=== PATIENT | female | born 1975 | race Caucasian/White ===

== ENCOUNTER 2019-04-21 01:29 | Outpatient (CLI) | payer BC, SELFPAY ==
--- NOTE | 2019-04-21 06:56 | DI.US_ITS ---
EXAM: US ABDOMEN CLINICAL HISTORY: abd pain TECHNIQUE: Ultrasound performed using standard protocol. COMPARISON: No exams were available for comparison FINDINGS: The aorta is normal in diameter. The liver is normal in size and echogenicity. No focal liver lesi ons or biliary dilatation is seen. The no gallstones or gallbladder wall thickening is present. The patient was not tender while scanning over the gallbladder. The kidneys, spleen and pancreas are un remarkable. There is no ascites. IMPRESSION: Negative abdomen ultrasound
[2019-04-21 07:45] LABS: Absolute Basophil Count 0.01 k/cumm (0.0-0.2); Absolute Eosinophil Count 0.35 k/cumm (0.0-0.7); Absolute Lymphocyte Count 2.03 k/cumm (1.2-3.4); Absolute Monocyte Count 0.29 k/cumm (0.11-0.7); Basophils % 0.2; Eosinophils % 7.8; HCT 39.4 % (36.0-46.0); HGB 13.4 g/dL (12.0-15.5); Lymphocytes % 45.3; Mean Corpuscular Hemoglobin 30.9 pg (27.0-33.0); Mean Platelet Volume 9.5 fL (8.0-11.0); Monocytes % 6.5; Neutrophils % 40.2; Platelet Count 219 x1000/uL (130-400); RBC 4.33 m/cumm (4.00-5.20); RBC Distribution Width 12.5 % (11.7-14.6); White Blood Cell Count 4.48 k/cumm (4.4-10.8)
[2019-04-21 08:45] LABS: ALT 32 U/L (14-59); AST 28 U/L (15-37); Alkaline Phosphatase 85 U/L (46-116); Anion Gap 8.6 mmol/L (3-11); BUN 13 mg/dL (7-18); Bilirubin, Total 0.5 mg/dL (0.2-1.0); CO2 28.4 mmol/L (21.0-32.0); CREATININE 0.97 mg/dL (0.55-1.02); Calcium 8.9 mg/dL (8.5-10.1); Chloride 105 mmol/L (98-107); Glucose 90 mg/dL (74-106); Potassium 3.8 mmol/L (3.5-5.1); Sodium 142 mmol/L (136-145); Total Protein 7.1 g/dL (6.4-8.2)
== END 2019-04-21 01:49 ==
PROVIDERS: PCP Nurse Practitioner Family; Visit Provider Internal Medicine
DX: R10.9 Unspecified abdominal pain (principal); R50.9 Fever, unspecified
CPT/HCPCS: 36415; 80053; 76700; 85025

== ENCOUNTER 2019-09-22 07:27 | Outpatient (CLI) | payer BC, SELFPAY ==
[2019-09-27 06:51] LABS: SARS-CoV-2 RNA Undetected (Undetected); SARS-CoV-2 Specimen Source Nasopharynx
== END 2019-09-22 07:47 ==
PROVIDERS: PCP Nurse Practitioner Family; Visit Provider Nurse Practitioner Family
DX: Z11.59 Encounter for screening for other viral diseases (principal)
CPT/HCPCS: U0003

== ENCOUNTER 2019-10-31 11:30 | Outpatient (REF) | payer BC, SELFPAY ==
--- NOTE | 2019-10-31 10:30 | PAPFT_PTH ---
PATIENT: Karen Rhodes LOC: [facility] U#:[id number] AGE/SX: 44/F ROOM: RE10/31/[address]: DIANE Nava : 1975 BED: DIS: 10/31/2019 SPEC #: [id number] RECD: 11/03/19 13:06 STATUS: THADDEUS REOswaldo #: [id number] NATALIIA: 10/31/19 10:[address]: Georgia Vera DEPT: [facility] Cytology RECD BY: Lisa Fletcher Tissues: 1 - CX/ENDOCX FOR PAP SMEARS Procedures: PAP THIN PREP/UVM Screening HPV DNA PROBE Comments: [id number]
== END 2019-10-31 11:50 ==
LOC: LBN 11:30
PROVIDERS: PCP Nurse Practitioner Family; Visit Provider Nurse Practitioner Family
DX: Z12.4 Encounter for screening for malignant neoplasm of cervix (principal); Z11.51 Encounter for screening for human papillomavirus (HPV)
CPT/HCPCS: 88142; 87624

== ENCOUNTER 2019-11-25 00:39 | Outpatient (CLI) | payer BC, SELFPAY ==
--- NOTE | 2019-11-25 08:19 | DI.MAMMO_ITS ---
EXAM: MAMMO SCREENING CLINICAL HISTORY: screening,Z12.39 TECHNIQUE: Mammograms were interpreted according to the usual protocol including computer analysis w ith CAD system, tomosynthesis and C-view imaging. COMPARISON: FINDINGS: The breasts are heterogeneously dense. No dominant mass or clumped microcalcification is identified in either breast. There is a questionable focal area of asymmetric density and/or architectural dist ortion projected centrally in the left breast on MLO view. Additional mammographic views of this are a are requested to include an MLO spot compression view of the left breast. IMPRESSION: Additional mammographic views of the left breast requested as described above. Breast ultrasound may be indicated as well depending on the results of the additional mammographic views. Category BI-RADS Cat 0 - Assessment Incomplete: Need additional imaging evaluation Breast Density - Category C - Heterogeneously dense
== END 2019-11-25 00:59 ==
PROVIDERS: PCP Nurse Practitioner Family; Visit Provider Nurse Practitioner Family
DX: Z12.31 Encounter for screening mammogram for malignant neoplasm of breast (principal); R92.2 Inconclusive mammogram
CPT/HCPCS: 77063; 77067

== ENCOUNTER 2019-11-27 01:25 | Outpatient (CLI) | payer BC, SELFPAY ==
--- NOTE | 2019-11-27 | DI.MAMMO_ITS ---
EXAM: MG MAMMO SCREEN CALL BACK UNI CLINICAL HISTORY: F/U MAMMO,?FOCAL ASYMMETRIC DENSITY AND/OR ARCHITECTURAL DISTORTION CENTRAL TECHNIQUE: Mammograms were interpreted according to the usual protocol including computer analysis w ith CAD system, tomosynthesis and C-view imaging. COMPARISON: FINDINGS: Additional mammographic views breast and left breast ultrasound are interpreted in conjunction. Thes e examinations were obtained to evaluate questionable area of asymmetric density of the retroareolar portion of left breast seen on MLO view of recent baseline mammogram. Additional mammographic views fail to show a discrete mass. Breast ultrasound shows no evidence of mass or cyst. IMPRESSION: No specific evidence of malignancy at this time. Follow-up unilateral left breast mammogram requeste d in 6 months. BI-RADS Category 3 - 6 month - Probably Benign Finding: Recommend follow-up mammography in 6 months Breast Density - Category C - Heterogeneously dense
== END 2019-11-27 01:45 ==
PROVIDERS: PCP Nurse Practitioner Family; Visit Provider Nurse Practitioner Family
DX: Z12.39 Encounter for other screening for malignant neoplasm of breast (principal); R92.8 Other abnormal and inconclusive findings on diagnostic imaging of breast; R92.2 Inconclusive mammogram
CPT/HCPCS: 76642; 77063; 77067

== ENCOUNTER 2020-01-16 03:34 | Outpatient (CLI) | payer BC, SELFPAY ==
[2020-01-16 07:54] LABS: Hemoglobin A1C 5.5 % (<5.7)
[2020-01-16 09:07] LABS: Anion Gap 8.4 mmol/L (3-11); BUN 18 mg/dL (7-18); CO2 26.6 mmol/L (21.0-32.0); CREATININE 0.88 mg/dL (0.55-1.02); Calcium 8.9 mg/dL (8.5-10.1); Calculated LDL 115 mg/dL (<100); Chloride 105 mmol/L (98-107); Cholesterol 180 mg/dL (<200); Glucose 91 mg/dL (74-106); HDL Cholesterol 47 mg/dL (40-60); Potassium 4.3 mmol/L (3.5-5.1); Sodium 140 mmol/L (136-145); Triglyceride 92 mg/dL (<150)
[2020-01-16 09:36] LABS: FREE T4 0.91 ng/dL (0.76-1.46)
[2020-01-27 13:22] LABS: Thyroglobulin Antibody 8.8 IU/mL (<4.0); Thyroperoxidase Antibody 436.5 IU/mL (<9.0)
== END 2020-01-16 03:54 ==
PROVIDERS: PCP Nurse Practitioner Family; Visit Provider Nurse Practitioner Family
DX: Z86.39 Personal history of other endocrine, nutritional and metabolic disease (principal); Z00.00 Encounter for general adult medical examination without abnormal findings
CPT/HCPCS: 36415; 80048; 80061; 86376; 83036; 84439; 84443

== ENCOUNTER 2020-02-04 10:44 | Outpatient (CLI) | payer BC, SELFPAY ==
[2020-02-07 04:41] LABS: Patient Race White; SARS-CoV-2 Specimen Source Nasal
[2020-02-07 06:59] LABS: SARS-CoV-2 RNA Detected (Undetected)
== END 2020-02-04 11:04 ==
PROVIDERS: PCP Nurse Practitioner Family; Visit Provider Nurse Practitioner Family
DX: Z11.59 Encounter for screening for other viral diseases (principal); Z20.828 Contact with and (suspected) exposure to other viral communicable diseases
CPT/HCPCS: U0003

== ENCOUNTER → 2020-05-26 00:54 | Outpatient (CLI) | payer BC, SELFPAY ==
--- NOTE | 2020-05-26 07:00 | DI.MAMMO_ITS ---
EXAM: MG MAMMO DIAGNOSTIC UNI CLINICAL HISTORY: 3-6 MO F/U ABNORMAL MAMMO, R92.8,Z09 ENCOUNTER FOR FOLLOW UP. TECHNIQUE: Both CC and MLO left breast images mammographic images were obtained with 3D Tomosynthesi stechnique and utilizing computer aided detection (CAD). COMPARISON: Prior baseline mammogram of November 2019. Ultrasound performed at that time was also reviewed. FINDINGS: Today's views reveal no new masses nor malignant-appearing microcalcification groups. Basically unch anged from previous. No new architectural distortion or skin thickening-traction. IMPRESSION: No radiographic evidence of malignancy in the left breast. Appropriate follow-up is to keep this patient on her yearly mammogram schedule, this implying the nex t bilateral mammogram would be in November 2020, with earlier imaging if a self detected breast viera ges noted.. BI-RADS Category 2 - Benign Findings Breast Density - Category B - Scattered areas of fibroglandular density Breast density Category C or D implies that the patient has dense breast tissue. Dense breast tissue can make it harder to find cancer on a mammogram. Dense breast tissue is also associated with an incr eased risk of breast cancer. This information about the result of the mammogram report was provided to the patient to raise their awareness. Use this report when you speak with the patient about their risks for breast cancer, which includes their family history. At that time, you may recommend additional screening tests (Ultrasoun d or MRI) as these tests may add significant information. A negative radiographic report should not delay biopsy if a dominant or clinically suspicious mass is present. Up to ten percent of cancers are not identified on mammography. A negative report may reinforce clinical impression. Adenosis and dense breasts may obscure an underlying neoplasm. False positive reports average 6 to 10%. Patient will receive a letter notifying them of these results.
== END ==
PROVIDERS: PCP Nurse Practitioner Family; Visit Provider Nurse Practitioner Family
DX: R92.8 Other abnormal and inconclusive findings on diagnostic imaging of breast (principal)
CPT/HCPCS: 77061; 77065; G0279

== ENCOUNTER 2020-11-01 14:11 | Outpatient (REF) | payer BC, SELFPAY ==
--- NOTE | 2020-11-01 10:40 | PAPFT_PTH ---
PATIENT: Karen Rhodes LOC: [facility] U#:[id number] AGE/SX: 45/F ROOM: RE11/01/[address]: DIANE Nava : 1975 BED: DIS: 11/01/2020 SPEC #: [id number] RECD: 11/01/20 17:53 STATUS: THADDEUS REQ #: [id number] NATALIIA: 11/01/20 10:[address]: Georgia Vera DEPT: [facility] Cytology RECD BY: Lisa Fletcher Tissues: 1 - CX/ENDOCX FOR PAP SMEARS Procedures: PAP THIN PREP/UVM Screening HPV DNA PROBE Comments: [id number]
== END 2020-11-01 14:12 | disposition home or self-care (01) ==
LOC: LBN 14:11
PROVIDERS: PCP Nurse Practitioner Family; Visit Provider Nurse Practitioner Family
DX: Z12.4 Encounter for screening for malignant neoplasm of cervix (principal); Z11.51 Encounter for screening for human papillomavirus (HPV)
CPT/HCPCS: 88142; 87624

== ENCOUNTER 2021-06-10 01:58 | Outpatient (CLI) | payer BC, SELFPAY ==
[2021-06-10 11:45] LABS: Source Nasal/Nares
[2021-06-10 14:08] LABS: COVID-19 PCR Negative (Negative)
== END 2021-06-10 01:59 | disposition home or self-care (01) ==
PROVIDERS: PCP Nurse Practitioner Family; Visit Provider Surgery
DX: Z20.822 Contact with and (suspected) exposure to COVID-19 (principal)
CPT/HCPCS: 87635

== ENCOUNTER 2021-06-13 09:49 | Day surgery (SDC) | payer BC, SELFPAY ==
--- NOTE | 2021-06-13 06:46 | W.COLOREPORT ---
Colonoscopy Report Date of procedure: 06/13/21 Pre-op diagnosis general: Colon Cancer Screening Post-op diagnosis procedure note: same Procedure: Colonoscopy Surgeon: Nadia Cao Anesthesia Type: General:No Airway Estimated blood loss (mL): 0 Pathology: none sent Complications: None Disposition: same day Indications: The patient is here for Colonoscopy pre-op. She has no family history of colon cancer. She has not had any bowel habit changes. -Discussed colonoscopy bowel prep as well as the procedure. Discussed possible complications of the procedure to include bleeding, pain, perforation, missed small lesion/polyp, sore throat, aspiration and adverse reaction to the medications. Questions were answered to patient?s satisfaction. No guarantees were implied or given.? Reviewed COVID pre-caution's and pre-procedure testing. Patient is scheduled for COVID test. Instructions of testing location were provided. Patient verbalized understanding. Prep: Miralax/Dulcolax Procedure Start Time: 12:04 Procedure End Time: 12:29 Retraction Time: 11 minutes Findings: Normal colonoscopy Procedure Description: After informed consent was obtained the patient was taken to the procedure room and placed in a left decubitous position. Monitors were applied and a time out was done. The patients name, date of , procedure, allergies to medications and metal in their body was reviewed. The patient was then sedated. Once sedated and comfortable a rectal exam was done. External exam was normal. Internal exam revealed a normal sphincter tone and no palpable masses. The scope was then introduced and retro-flexed. No internal hemorrhoids, polyps or masses were identified on retro-flexion. The scope was then advanced to the cecum without difficulty. The ileocecal vlave and appendiceal orifice were identified. The prep was good. The scope was then slowly retracted over 11 minutes back into the rectum. There were no polyps and there was no diverticulosis noted. The scope was removed and the patient was woken up and taken back to Same day surgery in stable condition. The patient tolerated the procedure well and there were no immediate complications. Follow up: The patient should follow up in 10 years unless they develop changes in bowel habits or other new gastrointestinal complaints.
--- NOTE | 2021-06-13 06:47 | W.PM.DSUDISC ---
Discharge Plan Disposition Patient Disposition: HOME Condition: Good Discharge Details Reason For Visit: Colonoscopy Attending Provider: Nadia Cao Primary Care Provider: Georgia Vera Home Meds and New Rx's Prescriptions: Continued Multiple Vitamin, Womens Tablet 1 tab PO DAILY 0RF Discontinued polyethylene glycol 3350 17 gram/dose powder 238 g PO ONCE Qty: 238 0RF Rx Instructions: take per colonoscopy instructions bisacodyl [Dulcolax (bisacodyl)] 5 mg tablet,delayed release (DR/EC) 5 mg PO ONCE Qty: 4 0RF Rx Instructions: take per colonoscopy instructions Discharge Instructions Additional Instructions: Findings: Normal colonoscopy Follow up: 10 years Please call if you develop: fevers >101.5 Nausea or Vomiting Abdominal pain that is not transient Rectal bleeding that is more then a tbsp A hard abdomen and inability to pass gas DAY SURGERY UNIT POST ENDOSCOPY INSTRUCTIONS Instructions for everyone who is given Anesthesia: For your safety, please do the following for the next 24 Hours: a. Do not drive or operate dangerous equipment b. Do not drink alcohol beverages or use any recreational drugs for the first 24 hours or while taking pain medications. The medications in your body may have a reaction that can be dangerous. c. Do not make any important decisions or sign any important papers 1. Generally there are no restrictions on your activity after a day or so has gone by, but you may feel a bit fatigued for a few days. 2. After you arrive home you may have a light meal and return to a normal diet as you can tolerate it without feeling sick to your stomach. 3. After surgery, you may feel pain or discomfort. This should be only transient, but if it persists please contact your doctor. 4. If there are any questions regarding the findings of your procedure, please feel free to contact your doctor. 6. If you are unable to contact your doctor with a problem, contact the hospital at [phone]. 7. Continue all your regular medications unless directed otherwise. I understand the above instructions and have no questions. Signature of Patient or Responsible Adult Escort Date/Time Name of Responsible Adult Escort Signature of Nurse Date/Time Activity:: Activity as Tolerated Diet:: As Tolerated Discharge Orders Discharge Orders: Discharge Order (Routine); Ordered 06/13/21 Ordered By: Nadia Cao
[2021-06-13 10:26] VITALS: BP 112/87; PULSE 74; RESP 16; TEMP 36.4; O2SAT 98
[2021-06-13] MEDS: Lactated Ringers 1,000 ML 80 ML IV (10:45)
--- NOTE | 2021-06-13 11:39 | W.ANESPRE ---
General Info Date of Service Date Performed: 06/13/21 Height: 5 ft 3 in Weight: 80.9 kg Body Mass Index (BMI): 31.6 Surgical Procedure: Operation Date: 06/13/21 11:35 Proposed Procedure Side Surgeon shivani Cao MD Meds Allergies and Home Medications Allergies Allergy/AdvReac Type Severity Reaction Status Date / Time blueberry Allergy Intermediate sweats, Verified 06/13/21 10:29 abdominal pain egg Allergy Intermediate sweats, Verified 06/13/21 10:29 abdominal pain soy Allergy Intermediate sweats, Verified 06/13/21 10:29 abdominal pain. Home Medication Medication Instructions Recorded vctbxvmukbyq-Re-squb-minerals 1 tab PO DAILY tab 10/31/19 (Multiple Vitamin, Womens) bisacodyl 5 mg tablet,delayed 5 mg PO ONCE #4 tab 06/03/21 release (Dulcolax (bisacodyl)) polyethylene glycol 3350 17 238 g PO ONCE #238 g 06/03/21 gram/dose oral powder Current Visit Medications: Current Medications Generic Name Dose Route Start Last Admin Trade Name Rashelq PRN Reason Stop Dose Admin Hyoscyamine Sulfate 0.125 mg 06/13/21 06:48 Hyoscyamine 0.125 Mg Sl/Oral/Chew SL DIRECTED PRN Ringer's Solution 1,000 mls @ 80 mls/hr 06/13/21 06:00 06/13/21 10:45 IV 07/10/21 23:59 80 mls/hr INFUSION JITENDRA Administration IV Miscellaneous Supplies 1 each 06/13/21 06:00 Iv Access IV 07/10/21 23:59 DIRECTED JITENDRA Ondansetron HCl 4 mg 06/13/21 06:48 Ondansetron 4 Mg/2 Ml Vial IVP Q4H PRN PRN Nausea / Vomiting Sodium Chloride 0 ml 06/13/21 06:00 Normal Saline Flush 10 Ml Syr IV 07/10/21 23:59 PRN PRN Sodium Chloride 0 ml 06/13/21 06:00 Normal Saline 10 Ml Vial IJ 07/10/21 23:59 DIRECTED PRN Sterile Water 0 ml 06/13/21 06:00 Water,Injection,Sterile 10 Ml Vial IJ 07/10/21 23:59 DIRECTED PRN PFSH Active Problems Active Problems: Problem Status Onset Code Closed fracture of lateral malleolus of right ankle 12/08/19 S82.61XA Hyperlipidemia E78.5 Ganglion of foot, right M67.471 Medical History Medical History Abnormal Papanicolaou smear of cervix with positive human papilloma virus (HPV) test 01/23-NIL, +HPV 8/16-NIL, +HPV 8/19-ASCUS, -HPV 8/19 Colposcopy-LSIL COVID-19 virus infection Tested positive x2 02/04/202003/2021 History of abnormal uterine bleeding Hx of ectopic Major depressive disorder Surgical History Surgical History (Updated 06/13/21 @ 10:32 by Regina Zamudio) H/O dilation and curettage History of endometrial ablation pt. unsure but thinks this is the procedure she had for abnormal uterine bleeding Tobacco Smoking/Tobacco Use Status: Current-Occasional Tobacco Type: cigarettes Passive smoking exposure: Yes Second hand exposure: No Alcohol Alcohol Intake: current Alcohol intake frequency: a few times a month Alcohol type: beer and hard liquor Substance Use Substance use: Never Substance use type: does not use Details: pt. reports about 3 cigarettes per week. Alcohol: t-5, 1/2 drink Prental History History 6 Para Hx # Term Pregnancies Multiple births Hx # Pregnancies Ectopic pregnancies 1 AB induced 1 Hx Number of Living Children 2 AB spontaneous 2 Vital Signs and Lab Results Vital Signs Most Recent Vital Signs in EMR: Most Recent Vital Signs Temp Pulse Resp BP Pulse Ox 36.4 C L 74 16 112/87 98 06/13/21 10:26 06/13/21 10:26 06/13/21 10:26 06/13/21 10:26 06/13/21 10:26 Point of Care Results Point of Care Results: POC- Test(urine) Negative 06/13/21 10:32 Lab Results Blood Type / Crossmatch: No Data to Display Complete Blood Count: No Data to Display Complete Metabolic Panel: No Data to Display Liver Function Panel: No Data to Display Coagulation Panel: No Data to Display Cardiac Panel: No Data to Display Arterial Blood Gas: No Data to Display Venous Blood Gas: No Data to Display Pancreas Panel: No Data to Display Thyroid Panel: No Data to Display Infectious Disease: Coronavirus (COVID-19)(PCR) Negative (Negative) 06/10/21 09:26 06/10/21 Coronavirus 2019 Source Nasal/Nares 06/10/21 09:26 06/10/21 Blood Cultures: No Data to Display Toxicology Panel: No Data to Display Panel: No Data to Display Anesthesia Assessment and Plan Anesthesia History Personal History: No History of Anesthesia Complications Family History: No Family History of Anesthesia Complications Exercise Tolerance Exercise Tolerance: Metabolic Equivalents>4 Pertinent Negatives Pertinent Negatives: No Symptoms of GERD Cardiac & Pulmonary Exam Cardiac Exam: Normal S1/S2 Heart Sounds Pulmonary Exam: Clear Bilateral Breath Sounds Implantable Cardiac Device Does patient have a Pacemaker or an ICD?: No Airway Exam Known Difficult Airway: No Mallampati Class: 2 Mouth Opening: Normal (> 3cm) Thyromental Distance: Greater than 3 cm Neck Range of Motion: Full ROM Neck Circumference: Normal Teeth Condition: Normal Dentition ASA Classification ASA Score: ASA 2 Emergency Case?: No NPO Status NPO Status: NPO Clears >2 hours, Solids >8 hours Status Status: Negative HCG Anesthesia Plan Resuscitation Status: Full Code Anesthesia Technique: General Anesthesia Airway Planned: Natural Airway Monitors Used: Standard Monitors
[2021-06-13 11:42] VITALS: BMI 31.6
[2021-06-13 12:36] VITALS: BP 103/71; PULSE 70; RESP 16; TEMP 36.2; O2SAT 97
[2021-06-13 13:10] VITALS: BP 117/72; PULSE 55; RESP 16; TEMP 36.1; O2SAT 100
--- NOTE | 2021-06-13 13:18 | W.ANESPOSTOP ---
Postoperative Evaluation Date, Time and Location Date Performed: 06/13/21 Time Performed: 13:18 Patient Location: Day Surgery Unit Vital Signs Most Recent Imported Vital Signs: Most Recent Vital Signs Temp Pulse Resp BP Pulse Ox 36.2 C L 70 16 103/71 97 06/13/21 12:36 06/13/21 12:36 06/13/21 12:36 06/13/21 12:36 06/13/21 12:36 Pain Score Most Recent Pain Score: Most Recent Pain Score Pain Level 0 06/13/21 12:36 Assessment Mental Status: Awake (Alert & Oriented to Patient Baseline) Airway and Respiratory Function: Patent airway with normal (patient baseline) respiratory exam Cardiovascular Function: Hemodynamically Stable Hydration Status: Adequately Hydrated Nausea & Vomiting: No Nausea or Vomiting Pain: Pt. Denies Any Pain Peripheral Nerve Block: Patient did not receive a nerve block
== END 2021-06-13 13:54 | disposition home or self-care (01) ==
LOC: SUR 09:49
PROVIDERS: PCP Nurse Practitioner Family; Visit Provider Surgery
PROC: 0DJD8ZZ Inspection of Lower Intestinal Tract, Via Natural or Artificial Opening Endoscopic (ICD-10-PCS; CPT 45378; principal; 2021-06-13 11:30)
DX: Z12.11 Encounter for screening for malignant neoplasm of colon (principal)
CPT/HCPCS: 45378; 81025

== ENCOUNTER 2022-05-29 13:03 | Outpatient (CLI) | payer BC, SELFPAY ==
[2022-05-29 11:15] LABS: Anion Gap 8.5 mmol/L (3-11); BUN 13 mg/dL (7-18); CO2 26.5 mmol/L (21.0-32.0); CREATININE 0.9 mg/dL (0.55-1.02); Calculated LDL 82 mg/dL (<100); Chloride 105 mmol/L (98-107); Cholesterol 169 mg/dL (<200); Estimated GFR 78.86 (mL/min/1.73m2); Glucose 98 mg/dL (74-106); HDL Cholesterol 61 mg/dL (40-60); Sodium 140 mmol/L (136-145); TSH (W/Ref FT4) 2.05 uIU/mL (0.36-3.74); Triglyceride 130 mg/dL (<150)
== END 2022-05-29 13:04 | disposition home or self-care (01) ==
LOC: LBO 13:05
PROVIDERS: PCP Nurse Practitioner Family; Visit Provider Nurse Practitioner Family
DX: Z00.00 Encounter for general adult medical examination without abnormal findings (principal); E78.5 Hyperlipidemia, unspecified
CPT/HCPCS: 36415; 80048; 80061; 84443

== ENCOUNTER 2022-06-07 01:19 | Outpatient (CLI) | payer BC, SELFPAY ==
--- NOTE | 2022-06-07 06:45 | DI.MAMMO_ITS ---
Exam(s) MAMMO SCREENING EXAM: MAMMO SCREENING CLINICAL HISTORY: screening,z12.39 TECHNIQUE: Bilateral full field digital CC and MLO mammographic images were obtained with 3D tomosyn thesis and utilizing computer aided detection (CAD). COMPARISON: Available for comparison. FINDINGS: Masses/Architectural Distortion: None seen. Microcalcifications: No suspicious pleomorphic-type are seen. Skin Thickening/Nipple Retraction: None. IMPRESSION: 1. No significant interval change with no specific features of malignancy noted. 2. Unless there is more urgent need, screening mammography is recommended, as per [employer] guidelines. BI-RADS Category 1 - Negative Breast Density - Category B - Scattered areas of fibroglandular density Breast density category C or D implies that the patient has dense breast tissue. Dense breast tissue is very common and is not abnormal but dense breast tissue can make it harder to find cancer on a ma mmogram. Also, dense breast tissue may increase their breast cancer risk. This information about the result of the mammogram report was provided to the patient to raise their awareness. Use this report when you speak with the patient about their risks for breast cancer, which includes their family hist ory. At that time, you may recommend for more screening tests (Ultrasound or MRI) as they might be us eful based on their risk. A negative radiographic report should not delay biopsy if a dominant or clinically suspicious mass is present. Up to ten percent of cancers are not identified on mammography. A negative report may reinforce clinical impression. Adenosis and dense breasts may obscure an underlying neoplasm. False positive reports average 6 to 10%. Patient will receive a letter notifying them of these results.
== END 2022-06-07 01:39 ==
LOC: DI 01:19
PROVIDERS: PCP Nurse Practitioner Family; Visit Provider Nurse Practitioner Family
DX: Z12.31 Encounter for screening mammogram for malignant neoplasm of breast (principal)
CPT/HCPCS: 77063; 77067

== ENCOUNTER 2024-12-29 16:38 | Outpatient (REF) | payer SELFPAY ==
[2024-12-29 17:02] LABS: Hemoglobin A1C 5.4 % (<5.7)
[2024-12-29 17:25] LABS: ALT 23 U/L (14-59); AST 17 U/L (15-37); Albumin 4.1 g/dL (3.4-5.0); Alkaline Phosphatase 75 U/L (46-116); Anion Gap 9.2 mmol/L (3-11); BUN 13 mg/dL (7-18); Bilirubin, Total 0.3 mg/dL (0.2-1.0); CO2 26.8 mmol/L (21.0-32.0); Calcium 9.3 mg/dL (8.5-10.1); Calculated LDL 96 mg/dL (<100); Chloride 104 mmol/L (98-107); Cholesterol 170 mg/dL (<200); Estimated GFR 105.30 (mL/min/1.73m2); Glucose 90 mg/dL (74-106); HDL Cholesterol 50 mg/dL (>or=50); Potassium 4.1 mmol/L (3.5-5.1); Sodium 140 mmol/L (136-145); TSH (W/Ref FT4) 2.52 uIU/mL (0.36-3.74); Total Protein 7.3 g/dL (6.4-8.2); Triglyceride 123 mg/dL (<150); Vitamin D 25 Total 40 ng/mL (30-100)
== END 2024-12-29 16:39 | disposition home or self-care (01) ==
LOC: NCHCN 16:38
PROVIDERS: PCP Nurse Practitioner Family; Visit Provider Nurse Practitioner Family
DX: Z13.1 Encounter for screening for diabetes mellitus (principal); Z13.220 Encounter for screening for lipoid disorders; Z00.00 Encounter for general adult medical examination without abnormal findings; Z83.49 Family history of other endocrine, nutritional and metabolic diseases
CPT/HCPCS: 80053; 80061; 82306; 83036; 84443